=== PATIENT | male | born 1940 | race Caucasian/White ===

== ENCOUNTER → 2016-06-30 | Outpatient (CLI) | payer OTHER | LOC: BHFA 14:30 | PROVIDERS: ATTEND Internal Medicine Cardiovascular Disease | DX: I25.10 Atherosclerotic heart disease of native coronary artery without angina pectoris (principal); I25.5 Ischemic cardiomyopathy; E78.00 Pure hypercholesterolemia, unspecified; I10 Essential (primary) hypertension ==

== ENCOUNTER → 2017-02-03 | Outpatient (CLI) | payer OTHER | LOC: BHFA 08:30 | PROVIDERS: ATTEND Internal Medicine Cardiovascular Disease | DX: I25.10 Atherosclerotic heart disease of native coronary artery without angina pectoris (principal); I25.5 Ischemic cardiomyopathy; R53.83 Other fatigue | CPT/HCPCS: 78452; 93017; 93306; A9500; J2785 ==

== ENCOUNTER 2017-08-31 05:45 | Day surgery (SDC) | payer OTHER ==
[2017-08-31] MEDS ORDERED: LIDOCAINE 1% 2 ML INJ ONE (05:59)
[2017-08-31] MEDS ORDERED: LIDOCAINE 1% 2 ML INJ ID PRN (06:02)
[2017-08-31] MEDS ORDERED: NS 1,000 ML IV ONE (06:02)
[2017-08-31] MEDS ORDERED: CLINDAMYCIN 900 MG/DEXTROSE 50 ML IV ONE (06:52)
--- NOTE | 2017-08-31 06:54 | PDHPUP ---
History & Physical Update H&P update statement: This history and physical update is based on an assessment of the patient which was completed after admission or registration (within 24 hours), but prior to the surgery/procedure. RRR CTAB H&P update: no change in patient's condition since H&P completed
[2017-08-31] MEDS ORDERED: LR 1,000 ML IV ONE (06:56)
[2017-08-31] MEDS ORDERED: MIDAZOLAM 2 MG/2 ML VIAL IVP ONE (07:06)
[2017-08-31] MEDS ORDERED: BACITRACIN 50,000 UNITS/10 ML SYR IRR ONE (07:08)
[2017-08-31] MEDS ORDERED: BUPIVACAINE 0.25% 30 ML SDV ONE (07:08)
[2017-08-31] MEDS ORDERED: BUPIVACAINE 0.5% 30 ML SDV ONE (07:08)
--- NOTE | 2017-08-31 07:12 | PDANEPAE ---
ANE History of Present Illness Left hand surgery ANE Past Medical History - Cardiovascular History Hx Hypertension: Yes Hx Arrhythmias: No Hx Chest Pain: No Hx Coronary Artery / Peripheral Vascular Disease: Yes Hx CHF / Valvular Disease: No Hx Palpitations: No Cardiovascular History Comment: previous NE. Ischemic cardiomyopathy - Pulmonary History Hx COPD: No Hx Asthma/Reactive Airway Disease: No Hx Recent Upper Respiratory Infection: No Hx Oxygen in Use at Home: No Hx Sleep Apnea: No Sleep Apnea Screening Result - Last Documented: Positive - Neurologic History Hx Cerebrovascular Accident: No Hx Seizures: No Hx Dementia: No - Endocrine History Hx Diabetes: No Hypothyroid: No Hyperthyroid: No Obesity: no - Renal History Hx Renal Disorders: No - Liver History Hx Hepatic Disorders: No - Neurological & Psychiatric Hx Hx Neurological and Psychiatric Disorders: No - Cancer History Hx Cancer: No - Congenital Disorder History Hx Congenital Disorders: No - GI History GERD: no Hx Gastrointestinal Disorders: No - Other Health History Other Health History: [place] [facility] [place] - Chronic Pain History Chronic Pain: No - Surgical History Prior Surgeries: ICD placement ANE Review of Systems Review of Systems: - Exercise capacity METS (RN): 4 METS - Pacemaker Pacemaker Type: Permanent Pacer/Defib Pacemaker White Kid Buffer: PlumChoice Pacemaker Model: Ilesto 7 VR-T DX Pacemaker Mode: VVI Pacemaker Set Rate: 40 Date Pacemaker Last Checked: 03/30/17, quick view 07/05/17 ANE Patient History - Allergies Allergies/Adverse Reactions: Penicillins Allergy (Severe, Verified 08/16/17 12:00) Other-Enter Comments azithromycin [From Zithromax] Allergy (Intermediate, Verified 08/16/17 12:00) Anxiety cephalexin monohydrate [From Keflex] Allergy (Intermediate, Verified 08/16/17 12 :00) Anxiety - Home Medications Home medications: home medication list seen and reviewed Home Medications: Clopidogrel Bisulfate [Plavix (*)] 03/06/14 [Last Taken 08/23/17] Ibuprofen [Motrin (*)] 03/06/14 [Last Taken 08/30/17 23:30] Metoprolol Succinate Xr [Toprol Xl 25 mg (*)] 03/06/14 [Last Taken 08/30/17 08: 30] Pravastatin Sodium [Pravachol] 03/06/14 [Last Taken 08/30/17 08:30] Ramipril [Altace 5mg (*)] 03/06/14 [Last Taken 08/30/17 08:30] Acetaminophen [Tylenol 325mg (*)] 08/16/17 [Last Taken Unknown] - NPO status NPO Since - Liquids (Date): 08/30/17 NPO Since - Liquids (Time): 17:00 NPO Since - Solids (Date): 08/30/17 NPO Since - Solids (Time): 17:30 - Smoking Hx Smoking Status: Light smoker - Family Anes Hx Family Hx Anesthesia Complications: none ANE Labs/Vital Signs - Vital Signs Blood Pressure: 148/95 Heart Rate: 74 Respiratory Rate: 18 O2 Sat (%): 94 Height: 177.8 cm Weight: 71.668 kg ANE Physical Exam - Airway Neck exam: decreased ROM Mallampati Score: Class 1 - Pulmonary Pulmonary: reduced air movement - Cardiovascular Cardiovascular: regular rate and rhythym, no murmur, rub, or gallop - ASA Status ASA Status: III ANE Anesthesia Plan Anesthesia Plan: GA w LMA
[2017-08-31] MEDS ORDERED: fentaNYL 250 MCG/5 ML INJ ONE (07:19)
[2017-08-31] MEDS ORDERED: PROPOFOL/EMULSION 500 MG/50 ML BOTTLE IV ONE ×2 (07:22)
--- NOTE | 2017-08-31 07:28 | PDGENHP ---
History & Physical Chief Complaint: Left ring finger Dupuytren's contracture History of Present Illness: Tom presented to our office with bilateral ring finger contractures. He has tried conservative treatment and is requiring surgical treatment. Pertinent Past, Social, Family History: Arthritis, CAD, heart disease, pacemaker , history of GA Relevant Physical Exam: Bilateral ring finger contractures and pretendinous cords Cardiorespiratory Assessment: RRR. CTAB
[2017-08-31] MEDS ORDERED: LIDOCAINE 1% 300 MG/30 ML SDV ONE (07:31)
[2017-08-31] MEDS ORDERED: BACITRACIN ZINC 14.2 GM OINTTUBE TP ONE (07:43)
[2017-08-31] MEDS ORDERED: PROPOFOL 200 MG/20 ML VIAL ONE ×2 (07:49→09:26)
[2017-08-31] MEDS ORDERED: PHENYLEPHRINE HCL 100 MCG/ML SYR ONE (08:35)
[2017-08-31] MEDS ORDERED: METOPROLOL TARTRATE 5 MG/5 ML INJ ONE (08:35)
[2017-08-31] MEDS ORDERED: GLYCOPYRROLATE 0.2 MG/1 ML VIAL ONE (08:35)
[2017-08-31] MEDS ORDERED: DEXAMETHASONE 4 MG/ML VIAL ONE (08:35)
[2017-08-31] MEDS ORDERED: ONDANSETRON 4 MG/2 ML VIAL ONE (08:35)
[2017-08-31] MEDS ORDERED: oxyCODONE IR 5 MG TAB PO PRN (09:19)
[2017-08-31] MEDS ORDERED: NALOXONE HCL 0.4 MG/ML INJ IVP PRN (09:19)
[2017-08-31] MEDS ORDERED: HYDROCODONE/APAP 5/325 TAB PO PRN (09:19)
[2017-08-31] MEDS ORDERED: ONDANSETRON 4 MG/2 ML VIAL IVP PRN (09:19)
[2017-08-31] MEDS ORDERED: ACETAMINOPHEN 500 MG TAB PO PRN (09:19)
[2017-08-31] MEDS ORDERED: fentaNYL 100 MCG/2 ML INJ IVP PRN (09:19)
--- NOTE | 2017-08-31 11:54 | POSTOPPROG ---
Post Op Note Date of Operation: 08/31/17 Surgeon: Facundo Pierce Fire Engine Operator: Tesha Willoughby PA-C Anesthesia: GET(General Endotracheal) Pre-op Diagnosis: left ring finger dupuytren's Post-op Diagnosis: left ring finger dupuytren's Indication: left ring finger dupuytren's Procedure: left ring finger fasciectomy,capsulotomy Inf/Abcess present in the surg proc area at time of surgery?: No
--- NOTE | 2017-08-31 12:02 | POSTANESTH ---
Post Anesthetic Evaluation Cardiovascular Status: Normal, Stable Respiratory Status: Normal, Stable Level of Consciousness/Mental Status: Can Participate in Eval Pain Control: Adequate, Prn Tx Ordered Nausea/Vomiting Control: Adequate, Prn Tx Ordered Complications Possibly Related to Anesthesia: None Noted
[2017-08-31 12:15] VITALS: BP 128/98
--- NOTE | 2017-08-31 20:18 | GOP ---
[f rep st] OPERATIVE REPORT PATIENT: NEY DIAZ DATE OF SERVICE: 08/31/17 PATIENT DATE OF : 1940 SURGEON: Facundo Pierce M.D. EXPORT DOCUMENTS CLERK: Tesha Willoughby PA-C Mrs. Acosta assistance was medically necessary for patient positioning and the retraction of vital structures. ANESTHESIA: General / regional anesthesia by surgeon PRE-OPERATIVE DIAGNOSES: Left ring finger Dupuytrens contracture (ICD-10 code M72.0 Dupuytrens contracture) Left ring finger MCP joint contracture (ICD-10 code M24.549 MCP joint contracture) Left ring finger PIP joint contracture (ICD-10 code M24.549 MCP joint contracture) POST-OPERATIVE DIAGNOSES: Left ring finger Dupuytrens contracture (ICD-10 code M72.0 Dupuytrens contracture) Left ring finger MCP joint contracture (ICD-10 code M24.549 MCP joint contracture) Left ring finger PIP joint contracture (ICD-10 code M24.549 MCP joint contracture) OPERATIVE PROCEDURES: CPT code 97594 Left ring finger fasciectomy, partial palmar with release of a single digit including the PIP joint CPT code 52049 Left ring finger MCP joint capsulotomy CPT code 96793 Left ring finger PIP joint capsulotomy CPT code 62990 Application of a short-arm splint Modifier 22 Increased procedural services Modifier 47 Regional anesthesia by surgeon EBL: 0.2cc COMPLICATIONS: None TOURNIQUET TIME: 92 minutes at 250 mmHg IMPLANTS: None BRIEF CLINICAL NOTE: This is a very pleasant 76 year old male with a significant history for left ring finger Dupuytrens contracture. As such, I discussed the risks, benefits, alternatives, and complications associated with both non-operative (specifically, observation, PNA, Xiaflex) and operative ( specifically, left ring finger fasciectomy with possible MCP, PIP, and/or DIP joint capsulotomies and possible full thickness skin grafting) forms of treatment. The patient fully understood the risks, benefits, alternatives, and complications associated with both forms of treatment and wished to proceed with operative intervention as outlined above. The patient has signed the informed consent form for surgery. OPERATIVE NOTE: On the day of surgery, all of the patients questions were answered. The patient was then transferred from the pre-operative area into the operating room and a formal, Time-Out procedure was performed. The patient was identified by name, medical record number, social security number, and date of . . In addition, the patients left upper extremity was identified as the correct portion of the patients body for surgery with the patients left ring finger being identified as the correct portion of that extremity for surgery. The anesthesia team administered pre-operative antibiotics for prophylaxis. The brachium was then padded with webril and tourniquet was applied. The extremity was then prepped and draped in the normal sterile fashion. A sterile marking pen was then utilized to toshia out Harjinder type incisions overlying the left ring finger. An Esmarch was then utilized to exsanguinate the upper extremity and the tourniquet was inflated to 250 mm Hg. A number 15 blade was then used to incise the skin overlying the left ring finger. Meticulous hemostasis was obtained in the subcutaneous plane. Radial and ulnar based skin flaps were carefully elevated and tied back in place with 4 -0 nylon sutures. The radial and ulnar neurovascular bundles as well as the flexor tendons were identified both proximally and distally. The Dupuytrens cords were then carefully dissected away from the underlying structures and excised in their entirety. This portion of the procedure required significant more time than is typical due to extremely dense nodular disease overlying the proximal phalanx and due to the presence of a spiral cord. Next, the left ring finger was carefully brought into an extended position. The MCP and PIP joints could not be brought into full extension. As such, capsulotomies were performed of the left ring finger MCP and PIP joints. Following the capsulotomies, the left ring finger could be brought into full extension across all joints. The wound was copiously irrigated with sterile normal saline and the skin was re -approximated with 4-0 nylon sutures. A mixture of 1% lidocaine and 0.5% Marcaine was utilized to perform a regional block of the operative site. The skin was cleaned with sterile normal saline and dried. Xeform gauze and bacitracin ointment were then applied to the incisions followed by a dry sterile dressing and short-arm splint maintaining the left ring and small fingers in a fully extended position. Once the splint was completely in place, the tourniquet was deflated. After complete deflation of the tourniquet, all fingers and the thumb demonstrated brisk capillary refill. The patient was then reversed from anesthesia and transferred from the operating room table onto the post-operative gurney and transferred from the operating room to the post-anesthesia care unit in stable condition. POST-OPERATIVE PLAN: The patient will remain in the current splint and dressing for the next 6 days. I will see the patient back in the office in 6 days, at which point, the original splint and dressing will be removed and the patient will be started on a course of certified hand therapy for early ROM. /[id number]/MODL MTDD
== END 2017-08-31 12:10 | disposition home or self-care (01) ==
LOC: FSGY 05:45
PROVIDERS: ATTEND Orthopaedic Surgery Hand Surgery
PROC: 0MN Bursae and Ligaments, Release (ICD-10-PCS; principal; 2017-08-31 07:15)
DX: M72.0 Palmar fascial fibromatosis [Dupuytren] (principal); M24.542 Contracture, left hand; I25.10 Atherosclerotic heart disease of native coronary artery without angina pectoris; I25.2 Old myocardial infarction; I25.5 Ischemic cardiomyopathy; Z95.810 Presence of automatic (implantable) cardiac defibrillator; I10 Essential (primary) hypertension; E78.00 Pure hypercholesterolemia, unspecified; M35.3 Polymyalgia rheumatica; L40.50 Arthropathic psoriasis, unspecified; Z79.82 Long term (current) use of aspirin; Z82.49 Family history of ischemic heart disease and other diseases of the circulatory system; Z95.5 Presence of coronary angioplasty implant and graft; Z88.0 Allergy status to penicillin; F17.210 Nicotine dependence, cigarettes, uncomplicated
CPT/HCPCS: J1100; J2250; J2370; J2405; J2704; J3010

== ENCOUNTER → 2018-07-19 | Outpatient (CLI) | payer OTHER | LOC: BMCIMAGING 08:19 | PROVIDERS: ATTEND Family Medicine | DX: N40.0 Benign prostatic hyperplasia without lower urinary tract symptoms (principal); N28.1 Cyst of kidney, acquired ==